=== PATIENT | male | born 1960 | race Caucasian/White ===

== ENCOUNTER 2024-09-14 14:48 | Outpatient (AMB) | payer OTHER, SELFPAY ==
--- NOTE | 2024-09-14 15:12 | MHC.OFFVIS ---
Vital Signs 09/14/24 15:13 Height 5 ft 7 in Weight 160 lb BMI 25.1 BP 137/78 Blood Pressure Location Lt brachial Position Sitting Respiration 18 Pulse 71 Pulse Source Pulse Oximeter Pulse Oximetry (%) 98 Oxygen Delivery Method Room Air Intake Visit Reasons: Failed Back Syndrome Glass Edger Required: No Allergies hydrochlorothiazide Allergy (Unknown, Verified 09/14/24 15:14) Unknown HPI Comments Details: Jake is very pleasant 64 years old gentleman who presents in my office with complains on pain in bilateral feet. He is referred to this office by electronic semiconductor processor Dr. Gonzales. He was evaluated in Dr. Guzmán's office and found to have pain in bilateral balls of his feet with pain 10/10 and inability to stand and walk sometimes. He had an MRI of the for foot which demonstrated unusual appearance of 1st plantar plate with the adjacent soft tissue edema on both sides very minimal 1st MTPJ degeneration. He reports that because of his pain he can not sleep normally he may be able from time to time to do activities of daily living, he is able to take care of himself but he can not function normally. Take he reports that movements and motions aggravate his pain. He reports severe pain at night. In terms of tissue damage he describes his pain as pulsing, pounding, jumping, shooting, stabbing, lancinating, sharp, lacerating tingling and stinging sensation. He went for EMG by Dr. Rousseau and Lorena. He reports that EMG demonstrated bilateral polyneuropathy of both feet. He denies diabetes. He denies toxic exposure. He denied heavy metal exposure. He tried multiple ways to treat his pain including homeopathic and herbal creams which did not help his pain he tried 10s unit application to his feet which helped his pain minimally to moderately. He received steroid injections into his feet by the office of Dr. Gonzales. He denies any help he reports exacerbation of the pain. His past medical history significant for hypertension, heart murmur, history of hepatitis-C which he was treated with interferon. He reports that now he is not carrying a viral load. Past surgical history significant for appendectomy tonsillectomy meniscal tear of the knee right wrist and hand surgery elbow surgery and history of L4-5 surgery in 2020. At this time he denies connection of his pain in the feet to the lower back. He denies back pain. Social history he is retired individual. He denies smoking cigarettes reports 3-4 beers on the weekend denies drinking coffee or caffeinated beverages and he denies recreational drugs. Review of Systems Const All systems reviewed & are unremarkable except as noted in HPI and below ENT Reports Normal hearing present Neuro Reports Normal hearing present, Denies Abnormal speech present, Denies confusion and Denies Sensory deficit (Neuro) Psych Denies confusion Physical Exam Vital Signs: Last Vital Signs Pulse 71 09/14/24 15:13 Resp 18 09/14/24 15:13 BP 137/78 09/14/24 15:13 Pulse Ox 98 09/14/24 15:13 Oxygen Delivery Method Room Air 09/14/24 15:13 BMI result Body Mass Index 25.1 Const General: no acute distress; No confusion Nutritional Appearance: obese morbidly obese Orientation/consciousness: patient oriented x3 and No confusion Eyes General: appearance normal, both eyes and all related structures Pupils: Equal, round and reactive pupils present EOM: EOMs intact bilaterally Neck Neck: Yes full ROM Chest Chest palpation & inspection: normal inspection of the chest Resp Effort & Inspection: normal respiratory effort, able to speak in complete sentences, normal respiratory pattern, no audible wheezes and no cough Cardio Jugular venous distension: no JVD GI Inspection: Yes normal to inspection Neuro General: patient oriented x3, gait normal and No confusion Cranial nerves: Yes CN's II-XII intact bilaterally, Yes Equal, round and reactive pupils present, Yes Normal hearing present and Yes Ability to bilaterally elevate shoulders present Speech: No Abnormal speech present Gait exam (Neuro): Normal gait present Motor exam (neuro): 5/5 motor strength present throughout Sensory Exam: No Sensory deficit (Neuro) Extrem Other: On the inspection slightly edematous anterior bilateral feet with tenderness on palpation in the bilateral both of the feet. Minimal redness at the balls of the feet. Decreased sensation of vibration at all proximal phalanges and metatarsal bones. General: Yes pedal edema Psych Speech and movement: Normal speech and movement present Affect: normal affect Attitude: cooperative Thought process: Normal thought process present Thought content: Normal thought content present Insight: Good insight present (Psych) Judgement: Good judgement present (Psych) Assessment & Plan Assessment & Plan (1) Chronic pain syndrome: Code(s): G89.4 - Chronic pain syndrome Category: Medical (2) Idiopathic polyneuropathy: Code(s): G60.9 - Hereditary and idiopathic neuropathy, unspecified Category: Medical Plan I contacted office of Dr. Rousseau and Dr. Carrillo and requested them to provide for us the results of the EMG which were performed for this patient in 2022 as well as last note of neurologist. The patient is suffering from peripheral idiopathic polyneuropathy. I offered this patient to consider spinal cord stimulation. I gave him [facility] brochure to read if he agrees and decides to go for this procedure he needs to go for psychological evaluation. He was given the telephone number of [facility] and he has a computer at home to complete the evaluation prior to procedure. I will see this patient in 2 weeks and we will discuss the trial further as well as implantation of the device if he likes the results of the trial. Patient Instructions: I here by testify that I spent 50 minutes in conversation with this patient as well as discussing this patient with office of the colleagues as well as planning his care and organizing this note. Coding Level of Care Code New Pt Level 4 (47380) Diagnoses Chronic pain syndrome G89.4 Idiopathic polyneuropathy G60.9
[2024-09-14 15:13] VITALS: BP 137/78; PULSE 71; RESP 18; O2SAT 98; BMI 25.1
--- OUTSIDE RECORDS SUMMARY | 2024-09-14 15:23 | XMS_ITS | Clinical Summary ---
Author Organization [facility] [address] [place] [address] [place] [phone] Phone Care Team Providers Care Technical Designer Name Role Phone Rito Cronin MD Primary Care Provider Allergies Active Allergy Reactions Criticality Noted Date Comments Hydrochlorothiazide 05/06/2010 Intolerant to dry mouth and polyuria Medications multivitamin (Multiple Vitamins) tablet Take 1 Tab by mouth daily. Active aspirin 81 mg EC tablet Take 1 Tab by mouth daily. 04/11/19 15 Active cholecalcifero l (VITAMIN D-3) 50 mcg (2,000 unit) tablet TAKE 1 TABLET BY MOUTH EVERY DAY 07/24/19 24 Active oxyCODONE (OxyCONTIN) 30 mg 12 hr abuse-deterren t tablet TAKE 1 TABLET BY MOUTH TWICE A DAY 12/13/19 17 Active valACYclovir (VALTREX) 1 gram tablet Take 2 Tablets by mouth 2 times daily. For 1 day for outbreaks. 06/11/19 24 Active traZODone (DESYREL) 50 mg tablet TAKE 1 TABLET BY MOUTH EVERY DAY AT BEDTIME NEEDED FOR SLEEP 90 tablet 1 04/22/19 25 Active metoprolol succinate (TOPROL-XL) 25 mg 24 hr tablet Take 1 tablet (25 mg total) by mouth 1 (one) time each day. Do not crush or chew. 90 tablet 1 05/17/19 25 Active omeprazole (PriLOSEC) [address] capsule Take 1 capsule (20 mg total) by mouth 1 (one) time each day. Do not crush or chew. 90 capsule 1 08/18/19 25 Active atorvastatin (LIPITOR) 20 mg tablet Take 1 tablet (20 mg total) by mouth 1 (one) time each day. 90 each 1 08/18/19 25 Active fenofibrate (LOFIBRA) 54 mg tablet Take 1 tablet (54 mg total) by mouth 1 (one) time each day. 90 each 1 08/18/19 25 Active fenofibrate (TRICOR) 145 mg tablet Take 1 tablet (145 mg total) by mouth 1 (one) time each day. 90 tablet 1 02/01/20 24 025 Discontinued ferrous sulfate 325 mg (65 mg elemental iron) tablet Take 1 tablet (325 mg total) by mouth 1 (one) time each day. 90 tablet 1 02/01/20 025 Discontinued(Th erapy completed) atorvastatin (LIPITOR) 40 mg tablet TAKE 1 TABLET BY MOUTH EVERYDAY AT BEDTIME 90 tablet 1 04/22/19 025 Discontinued omeprazole (PriLOSEC) [address] capsule Take 1 capsule (20 mg total) by mouth 1 (one) time each day. Do not crush or chew. 30 capsule 1 08/17/19 025 Discontinued(Re order) Active Problems Problem Noted Date Diagnosed Date CKD (chronic kidney disease) stage 2, GFR 60-89 ml/min 08/17/2024 Mixed hyperlipidemia 08/17/2024 Chronic bilateral low back pain without sciatica 08/17/2024 Peripheral neuritis 09/20/2022 Fluctuating blood pressure 03/29/2020 COVID-19 03/13/2020 Pure hypercholesterolemia 12/24/2016 GERD (gastroesophageal reflux disease) 4 Depression with anxiety 03/29/2013 Insomnia 03/04/2013 Allergic rhinitis 12/16/2007 Disorder of bone and cartilage 10/15/2005 Overview (01/19/2024): IMO update Hepatitis 10/15/2005 Overview (01/19/2024): 12/20/10 started Tx w/ Peg-Intron Redipen 120/0.5, Inject 0.5ml sc weekly, Ribavirin 200 mg tabs 3 tabs BID w/ Breakfast & Supper. & Telaprevir 375 mg tabs 2 tabs TID w/ 20 grams of fat 8 hours apart. 12/25/11 SVR Achieved. Tx stopped @ 24 weeks (rapid responder). Repeat viral load qual & quant in Dec 2011 was negative indicating SVR and suggesting a cure . IMO update Hypertension 10/15/2005 Encounters Date Type Department Care Team Description 08/17/2024 11:00 AM EDT Office Visit [facility] Medicine [address] [phone] Rito Cronin MD Primary hypertension (Primary Dx); Mixed hyperlipidemia; Gastroesophageal reflux disease without esophagitis; CKD (chronic kidney disease) stage 2, GFR 60-89 ml/min; Insomnia, unspecified type; Chronic bilateral low back pain without sciatica; Chronic anemia 08/17/2024 9:30 AM EDT Office Visit [facility] Hematology Oncology [address] [place] [phone] Samuel Vargas MD Normocytic anemia (Primary Dx) 07/11/2024 1:00 PM EDT Office Visit [facility] Hematology Oncology [address] [place] [phone] Samuel Vargas MD Anemia, unspecified type from Last 3 Months Immunizations Name Administration Dates Next Due Hepatitis A-Hepatitis B Adult (Twinrix) 18yo and older 10/31/2010,07/24/2010 Influenza Quadravalent, MDCK , 0.5ml, preservative free (Flucelvax) 6mo and older 12/09/2021 Influenza trivalent, 0.5mL, preservative free (Fluarix; FluLaval; Fluzone) ages 6mo and older (Afluria) 3 years and older 04/11/2014,11/24/2012 Influenza, Unspecified 12/04/2022 PPD Test 01/06/2012 Td Tetanus diptheria (Tdvax) 7yo and older 01/03 Tdap Tetanus diptheria acell ular pertussis (Boostrix; Adacel) 7yo and older 03/19/2022,01/06/2012 Surgical History Surgery Date Site/Laterality Comments APPENDECTOMY PROCEDURE: ME APPENDECTOMY TONSILLECTOMY PROCEDURE: HISTORICAL TONSILLECTOMY; COMMENT: T&A KNEE ARTHROSCOPY W/ MENISCAL REPAIR PROCEDURE: ME ARTHROSCOPY KNEE W/MENISCUS RPR MEDIAL/LATERAL OTHER SURGICAL HISTORY PROCEDURE: ME EXC NEUROMA HAND/FOOT EA NRV XCP SM DGT; COMMENT: L foot OTHER SURGICAL HISTORY PROCEDURE: ME ARTHROSCOPY ELBOW SURGICAL DEBRIDEMENT LIMITED; COMMENT: R AND L TENDONITIS OTHER SURGICAL HISTORY PROCEDURE: ME ARTHROSCOPY WRIST DIAG W/WO SYNOVIAL BIOPSY SPX; COMMENT: 5 or 6 SURGERIES COLONOSCOPY 03/11/10 PROCEDURE: HISTORICAL COLONOSCOPY; COMMENT: normal; repeat in ten years HERNIA REPAIR 10/28/2017 PROCEDURE: HISTORICAL HERNIA REPAIR/UMB; COMMENT: Angie Wells HERNIA REPAIR 10/28/2017 PROCEDURE: REPAIR UMBILICAL HERNIA; COMMENT: Dr. Wells Medical History Medical History Date Comments Disorder of bone and cartila ge, unspecified 10/15/2005 DX:Disorder of bone and cart ilage, unspecified Allergic rhinitis 12/16/2007 DX:Allergic rh initis Essential hypertension, benign 10/15/2005 D X:Essential hypertension, benign Hepatitis, unspecified 10/15/2005 DX:Hepati tis, unspecified; COMMENT: 12/20/10 started triple therapy. Completed 24 weeks of treatment. Repeat testing 12/25/11 confirmed SVR and a cure . GERD (gastroesophageal reflu x disease) 11/21/2013 DX:GERD (gastroesophageal re flux disease) Umbilical hernia without obs truction and without gangrene 07/09/2015 DX:Umbilical hernia without obstruction and without gangrene IFG (impaired fasting glucose) 06/03/2017 D X:IFG (impaired fasting glucose) Family History Medical History Relation Name Comments Hypertension Father Other: Dementia Mother Relation Name Status Comments Father Alive htn, chol in 70 s; cardiac stent - CAD Maternal Grandfather uk - al cohol Maternal Grandmother pneumon ia Mother Alive dementia-MINI C [place] Paternal Grandfather Paternal Grandmother [place] Sister Alive 2 sisters; 1 sc leroderma and fibromyalgia, 1 healthy Son Alive 1 son, healthy Social History Tobacco Use Types Packs/Day Years Used Date Smoking Tobacco: Former Cigarettes Q uit: 03/09/1991 Smokeless Tobacco: Former Tobacco Cessation:Counseling Given: Not Answered Alcohol Use Standard Drinks/Week Comments Yes 0 (1 standard drink = 0.6 oz pur e alcohol) Housing Instability Answer Date Recorde d Are you worried that in the next 2 months you may not have stable housing? No 05/15/2024 Food Access & Nutrition Answer Date Rec orded Do you have access to a vari ety of food including fruits and vegetables? Yes 05/15/2024 Access to Healthcare Answer Date Record ed Within the last 3 months, ho w many times did you visit the emergency department for your medical care? 0 05/15/2024 Health Literacy Answer Date Recorded How often do you need to hav e someone help you when you read instructions, pamphlets, or other written material from your doctor or pharmacy? Never 05/15/2024 Caregiver: How often do you need to have someone help you when you read instructions, pamphlets, or other written material from your doctor or pharmacy? Not on file 05/15/2024 Financial Risk Answer Date Recorded How hard is it for you to pa y for the very basics like food, housing, medical care, and air conditioning / heating? Not very hard 05/15/2024 Transportation Answer Date Recorded Has the lack of transportati on kept you from meetings, work, or from getting things needed for daily living? No Has the lack of transportati on kept you from medical appointments or from getting medications? No 05/15/2024 Social Isolation Answer Date Recorded How often do you feel lonely or isolated from th ose around you? Never 05/15/2024 Food Risk Answer Date Recorded Within the past 12 months we worried whether our food would run out before we got money to buy more. Never true 05/15/2024 Within the past 12 months th e food we bought just didn't last and we didn't have money to get more. Never true 05/15/2024 Dependent Care Answer Date Recorded Do you need help finding or paying for care for your loved ones. For example, school child care attendant or elderly care for an older adult? No 05/15/2024 Education Answer Date Recorded Do you think completing more education or training, like finishing a GED, going to college, or learning a trade, would be helpful for you? N/A 05/15/2024 Employment and Income Answer Date Recor ded During the last four weeks, have you been actively looking for work? No 05/15/2024 Living Situation Answer Date Recorded What is your living situation? 0 05/15/2024 Sex and Gender Information Value Date Recorded Sex Assigned at Male 07/12/2024 12:13 PM EDT Legal Sex Male 11:39 PM EST Gender Identity Male 07/12/2024 12:13 PM EDT Sexual Orientation Straight 07/12/2024 12 :13 PM EDT Obstetrics History Last Filed Vital Signs Vital Sign Reading Time Taken Comments Blood Pressure 120/78 08/17/2024 10:44 AM EDT provider will recheck Pulse 84 08/17/2024 10:44 AM EDT Temperature 36.3 C (97.3 F) 08/17/2024 9:21 AM EDT Respiratory Rate 16 08/17/2024 10:4 4 AM EDT Oxygen Saturation 100% 08/17/2024 9:2 1 AM EDT Inhaled Oxygen Concentration - - Weight 73 kg (161 lb) 08/17/2024 10:44 AM EDT Height 170.2 cm (5' 7 ) 08/17/2024 10:4 4 AM EDT Body Mass Index 25.22 08/17/2024 10:44 AM EDT Plan of Treatment Upcoming Encounters Date Type Department Care Team (Late st Contact Info) Description 01/17/2025 11:00 AM EST Office Visit Adult Medicine [address] [phone] Rito Cronin MD [address] [place] [phone] Health Maintenance Due Date Last Done Comments Pneumococcal Vaccine: 50+ Years (1 of 2 - PCV) 1978 Hepatitis B Vaccines (3 of 3 - Hep B Twinrix 3-dose series) 04/02/2011 10/31/2010, 07/24/2010 COVID-19 Vaccine (2 - Pfizer risk series) 06/28/2021 06/07/2021 Abdominal Aortic Aneurysm (AAA) Screen 02/01/2022 Falls Risk Assessment 01/27/2024 Influenza Vaccine (#1) 2024 , 12/09/2021, 04/11/2014, Additional history exists Social Influencers of Health Screening 05/15/2025 05/15/2024 Hypertension/CHF/CAD Annual BMP Blood Test 07/11/2025 07/11/2024, 05/12/2024, 03/25/2024, Additional history exists Colorectal Cancer Screening: Colonoscopy 07/30/2026 07/30/2021 Cholesterol Screening (Lipid Panel) 03/17/2029 03/17/2024, 01/22/2023 DTaP,Tdap,and Td Vaccines (4 - Td or Tdap) 03/19/2032 03/19/2022, 01/06/2012, 01/03/2003 RSV Immunization Adult Patients (1 - 1-dose 75+ series) 2034 Hepatitis A Vaccines Aged Out 10/31/2010, 07/25/19 11 No longer eligible based on patient's age to complete this topic Hepatitis C Screening Completed 08/04/2015 Zoster Vaccines Completed 12/05/2022, 07/29/2022 Depression Screening Completed 05/15/2024 HIB Vaccines Aged Out No longer eligi ble based on patient's age to complete this topic HPV Vaccines Aged Out No longer eligi ble based on patient's age to complete this topic IPV Vaccines Aged Out No longer eligi ble based on patient's age to complete this topic MMR Vaccines Aged Out No longer eligi ble based on patient's age to complete this topic Meningococcal ACWY Vaccine Aged Out N o longer eligible based on patient's age to complete this topic Meningococcal B Vaccine Aged Out No l onger eligible based on patient's age to complete this topic RSV Immunization Patients Under 20 months Aged Out No longer eligible based on patient's age to complete this topic Varicella Vaccines Aged Out No longer eligible based on patient's age to complete this topic Procedures Procedure Name Priority Date/Time Associated Diagnosis Comments CBC WITH AUTO DIFFERENTIAL Routine 07/11/2024 1:27 PM EDT Anemia, unspecified type COMPREHENSIVE METABOLIC PANEL Routine 07/11/2024 1:27 PM EDT Anemia, unspecified type ERYTHROPOIETIN Routine 07/11/2024 1:27 PM EDT Anemia, unspecified type RETICULOCYTE COUNT Routine 07/11/2024 1: 27 PM EDT Anemia, unspecified type IRON AND TIBC Routine 07/11/2024 1:27 PM EDT Anemia, unspecified type FERRITIN Routine 07/11/2024 1:27 PM EDT Anemia, unspecified type VITAMIN B12 AND FOLATE Routine 1:27 PM EDT Anemia, unspecified type CBC AND DIFFERENTIAL Routine 07/11/2024 1:27 PM EDT Anemia, unspecified type LIPID PANEL WITH REFLEX TO DIRECT LDL Routine 03/17/2024 9:37 AM EST Adult general medical examination Gastroesophageal reflux disease without esophagitis Pure hypercholesterolemia Peripheral neuritis Primary hypertension COLONOSCOPY Routine 07/30/2021 HEPATITIS C SCREENING Routine 08/04/2015 from Last 3 Months or Most Recently Relevant to Health Maintenance Results * (ABNORMAL) Vitamin B12 and folate (07/11/2024 1:27 PM EDT) Vitamin B-12 653 250 - 900 pcg/mL LAB CHEMISTRY METHOD 07/11/2024 6:25 PM EDT [facility] Folate >20.0(H) 2.8 - 17.0 ng/ml LAB CHEMISTRY METHOD 07/11/2024 6:25 PM EDT [facility] Blood Venous blood specimen / Unknown Venipuncture / Unknown 07/11/2024 1:27 PM EDT 07/11/2024 4:38 PM EDT us Samuel Vargas MD LAB BLOOD ORDERABLES Final R esult [facility] [address] [place] [address], [place] [phone] * (ABNORMAL) CBC auto differential (07/11/2024 1:27 PM EDT) [facility] WBC 7.0 4.8 - 10.8 K/mcL LAB HEMETOLOGY METHOD 07/11/2024 4:49 PM EDT [facility] RBC 4.70 4.50 - 5.50 M/mcL LAB HEMETOLOGY METHOD [facility]/11[facility]2024 [facility] Hemoglobin 14.0 13.5 - 17.5 g/dL LAB HEMETOLOGY METHOD 07/11/2024 4:49 PM EDT [facility] Hematocrit 43.9 42.0 - 54.0 % LAB HEMETOLOGY METHOD 07/11/2024 4:49 PM [facility] MCV 92.8 79.0 - 98.0 FL LAB HEMETOLOGY METHOD 07/11/2024 4:49 PM [facility] MCH 29.6 27.0 - 32.0 pcg LAB HEMETOLOGY METHOD 07/11/2024 4:49 [facility] MCHC 31.9(L) 32.0 - 37.0 g/dL LAB HEMETOLOGY METHOD 07/11/2024 4:49 PM [facility] RDW 12.0 11.0 - 15.0 % LAB HEMETOLOGY METHOD 07/11/2024 4:49 PM [facility] Platelets 259 130 - 400 K/mcL LAB HEMETOLOGY METHOD 07/11/2024 4:49 PM EDT [facility] MPV 10.1 7.0 - 11.0 FL LAB HEMETOLOGY METHOD 07/11/2024 4:49 [facility] NRBC 0.0 <1.0 % LAB HEMETOLOGY METHOD 07/11/2024 4:49 PM [facility] NRBC Absolute 0.00 <0.10 K/mcL LAB HEMETOLOGY METHOD 07/11/2024 4:49 PM EDT [facility] Neutrophils Relative 64.4 % LAB HEMETOLOGY METHOD 07/11/2024 4:49 PM [facility] Lymphocytes Relative 22.6 % LAB HEMETOLOGY METHOD 07/11/2024 4:49 PM [facility] Monocytes Relative 10.6 % LAB HEMETOLOGY METHOD 07/11/2024 4:49 PM [facility] Eosinophils Relative 1.6 % LAB HEMETOLOGY METHOD 07/11/2024 4:49 PM [facility] Basophils Relative 0.4 % LAB HEMETOLOGY METHOD 07/11/2024 4:49 PM [facility] Immature Granulocytes Relative 0.4 % LAB HEMETOLOGY METHOD 07/11/2024 4:49 PM [facility] Neutrophils Absolute 4.47 1.50 - 7.00 K/mcL LAB HEMETOLOGY METHOD 07/11/2024 4:49 PM [facility] Lymphocytes Absolute 1.57 1.00 - 5.00 K/mcL LAB HEMETOLOGY METHOD 07/11/2024 4:49 PM [facility] Monocytes Absolute 0.74 0.20 - 1.00 K/mcL LAB HEMETOLOGY METHOD 07/11/2024 4:49 PM [facility] Eosinophils Absolute 0.11 0.00 - 0.50 K/mcL LAB HEMETOLOGY METHOD 07/11/2024 4:49 PM [facility] Basophils Absolute 0.03 0.00 - 0.20 K/mcL LAB HEMETOLOGY METHOD 07/11/2024 4:49 PM [facility] Immature Granulocytes Absolute 0.03 0.00 - 0.03 K/mcL LAB HEMETOLOGY METHOD 07/11/2024 4:49 PM [facility] Blood Venous blood specimen / Unknown Venipuncture / Unknown 07/11/2024 1:27 PM EDT 07/11/2024 4:39 PM EDT Samuel Vargas MD LAB BLOOD ORDERABLES Final R esult [facility] [address] [place] [address], [place] [phone] * Erythropoietin (07/11/2024 1:27 PM EDT) Erythropoietin 3.8 2.6 - 18.5 mIU/mL 07/14/2024 3:52 PM EDT [facility] Comment: Test performed at [facility], [address], [place] [address] Niurka Flores MD, PhD - Econometrician Blood Venous blood specimen / Unknown Venipuncture / Unknown 07/11/2024 1:27 PM EDT 07/11/2024 4:38 PM EDT Samuel Vargas MD LAB BLOOD ORDERABLES Final R esult [facility] [address] [place] [address] * Iron and TIBC (07/11/2024 1:27 PM EDT) Iron 106 50 - 160 mcg/dL LAB CHEMISTRY METHOD 07/11/2024 6:03 PM EDT [facility] TIBC 443 250 - 450 mcg/dL LAB CHEMISTRY METHOD 07/11/2024 6:03 PM EDT [facility] Iron Saturation 24 20 - 50 % LAB CHEMISTRY METHOD 07/11/2024 6:03 PM EDT [facility] Blood Venous blood specimen / Unknown Venipuncture / Unknown 07/11/2024 1:27 PM EDT 07/11/2024 4:38 PM EDT Samuel Vargas MD LAB BLOOD ORDERABLES Final R esult Performing Organization Address City/[facility]/ZIP Co de Phone Number [facility] [address] [place] [address], [place] [phone] * Reticulocyte count (07/11/2024 1:27 PM EDT) Retic Ct Abs 0.050 0.030 - 0.090 M/mcL LAB HEMETOLOGY METHOD 07/11/2024 4:49 PM EDT [facility] Retic Ct Pct 1.1 0.7 - 1.7 % LAB HEMETOLOGY METHOD 07/11/2024 4:49 PM EDT [facility] Immature Retic Fract 5.8 2.3 - 15.9 % LAB HEMETOLOGY METHOD 07/11/2024 4:49 PM EDT [facility] Reticulocyte Hemoglobin 32.8 >29.0 pcg LAB HEMETOLOGY METHOD 07/11/2024 4:49 PM EDT [facility] Blood Venous blood specimen / Unknown Venipuncture / Unknown 07/11/2024 1:27 PM EDT 07/11/2024 4:39 PM EDT Samuel Vargas MD LAB BLOOD ORDERABLES Final R esult [facility] [address] [place] [address], [place] [phone] * Ferritin (07/11/2024 1:27 PM EDT) Ferritin 332 26 - 388 ng/mL LAB CHEMISTRY METHOD 07/11/2024 6:03 PM EDT [facility] Blood Venous blood specimen / Unknown Venipuncture / Unknown 07/11/2024 1:27 PM EDT 07/11/2024 4:38 PM EDT us Samuel Vargas MD LAB BLOOD ORDERABLES Final R esult [facility] [address] [place] [address], * (ABNORMAL) Comprehensive metabolic panel (07/11/2024 1:27 PM EDT) Sodium 137 133 - 145 mmol/L LAB CHEMISTRY METHOD 07/11/2024 6:25 PM EDT [facility] Potassium 4.6 3.5 - 5.5 mmol/L LAB CHEMISTRY METHOD 07/11/2024 6:25 PM [facility] Chloride 103 96 - 110 mmol/L LAB CHEMISTRY METHOD 07/11/2024 6:25 PM [facility] CO2 30 21 - 32 mmol/L LAB CHEMISTRY METHOD 07/11/2024 6:25 PM [facility] Anion Gap 4 3 - 11 LAB CHEMISTRY METHOD 07/11/2024 6:25 PM [facility] Glucose 106(H) 70 - 100 mg/dL LAB CHEMISTRY METHOD 07/11/2024 6:25 PM [facility] BUN 16 5 - 25 mg/dL LAB CHEMISTRY METHOD 07/11/2024 6:25 PM [facility] Creatinine 1.21 0.70 - 1.30 mg/dL LAB CHEMISTRY METHOD 07/11/2024 6:25 PM [facility] eGFR 66 >=60 mL/min/1. 73m2 LAB CHEMISTRY METHOD 07/11/2024 6:25 PM [facility] Comment:Calculation based on the Chronic Kidney Disease Epidemiology Collaboration (CKD-EPI) equation refit without adjustment for race. BUN/Creatinine Ratio 13.2 LAB CHEMISTRY METHOD 07/11/2024 6:25 PM [facility] Calcium 9.6 8.5 - 10.5 mg/dL LAB CHEMISTRY METHOD 07/11/2024 6:25 PM EDT [facility] AST (SGOT) 26 10 - 42 unit/L LAB CHEMISTRY METHOD 07/11/2024 6:25 PM [facility] ALT (SGPT) 32 10 - 60 unit/L LAB CHEMISTRY METHOD 07/11/2024 6:25 PM EDT [facility] Alkaline Phosphatase 77 42 - 121 unit/L LAB CHEMISTRY METHOD 07/11/2024 6:25 PM EDT [facility] Total Protein 7.4 6.0 - 8.0 g/dL LAB CHEMISTRY METHOD 07/11/2024 6:25 PM [facility] Albumin 4.2 3.2 - 5.0 g/dL LAB CHEMISTRY METHOD 07/11/2024 6:25 PM [facility] Total Bilirubin 0.4 0.0 - 1.4 mg/dL LAB CHEMISTRY METHOD 07/11/2024 6:25 PM EDT [facility] Blood Venous blood specimen / Unknown Venipuncture / Unknown 07/11/2024 1:27 PM EDT 07/11/2024 4:38 PM EDT us Samuel Vargas MD LAB BLOOD ORDERABLES Final R esult [facility] [address] [place] [address], * Lipid panel with reflex to direct LDL (03/17/2024 9:37 AM EST) Cholesterol 137 0 - 200 mg/dL LAB CHEMISTRY METHOD 03/17/2024 12:24 PM EST [facility] Triglycerides 99 0 - 150 mg/dL LAB CHEMISTRY METHOD 03/17/2024 12:24 PM EST [facility] HDL 49 >=40 mg/dL LAB CHEMISTRY METHOD 03/17/2024 12:24 PM EST [facility] LDL Calculated 68 0 - 100 mg/dL LAB CHEMISTRY METHOD 03/17/2024 12:24 PM EST [facility] VLDL Cholesterol Addy 19.8 mg/dL LAB CHEMISTRY METHOD 03/17/2024 12:24 PM EST [facility] Non HDL Chol. (LDL+VLDL) 88 <145 mg/dL LAB CHEMISTRY METHOD 03/17/2024 12:24 PM EST [facility] Chol/HDL Ratio 2.8 0.0 - 4.4 LAB CHEMISTRY METHOD 03/17/2024 12:24 PM [facility] Blood Venous blood specimen / Unknown Venipuncture / Unknown 03/17/2024 9:37 AM EST 03/17/2024 9:37 AM EST Ebonie ACEVEDO LAB BLOOD ORDERABLES Fin al Result [facility] [address] [place] [address], * Colonoscopy (07/30/2021) [facility] Colonoscopy No Interpretation , Abstracted Anatomical Region Laterality Modality Other Historical Provider HEALTH MAINTENANCE Final Result * Hepatitis C Screening (08/04/2015) [facility] Hepatitis C Screening Abstracted Historical Provider HEALTH MAINTENANCE Final Result from Last 3 Months or Most Recently Relevant to Health Maintenance Insurance [employer] Advance Directives Documents on File Type Date Recorded 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
--- OUTSIDE RECORDS SUMMARY | 2024-09-14 15:23 | XMS_ITS ---
Author Name [facility] Organization Unknown History of Medication Use Medication Directions Dispensed Refills Start Date End Date Stat lidocaine (LIDODERM) 5 % patch Leave on for 12 hours then remove 08/25/2024 active lidocaine (LIDODERM) 5 % patch Place 1 patch on the skin daily. Apply patch and leave on for 12 hours then remove. Patch may remain on skin for 12 hours per day. 04/08/2024 active cyclobenzaprine (FLEXERIL) 10 MG tablet TAKE 1 TABLET BY MOUTH THREE TIMES A DAY NEEDED 06/13/2022 08/07/2023 active HYDROmorphone (DILAUDID) 4 MG tablet Take 1-1.5 tablets (4-6 mg total) by mouth 4 times daily (every 6 hours) as needed for severe pain. Max Daily Amount: 24 mg 06/13/2022 08/14/2022 active acetaminophen (TYLENOL) 325 MG tablet Take 3 tablets (975 mg total) by mouth every 6 (six) hours. 06/13/2022 07/14/2022 active calcium carbonate (TUMS) 500 MG chewable tablet Chew 2 tablets (1,000 mg total) 2 times daily (every 12 hours) as needed for indigestion or heartburn. 06/13/2022 07/14/2022 active aspirin enteric coated (ECOTRIN LOW STRENGTH) 81 MG EC tablet Take 1 tablet (81 mg total) by mouth 2 (two) times a day. 06/13/2022 active gabapentin (NEURONTIN) 300 MG capsule Take 1 capsule (300 mg total) by mouth 3 (three) times a day. 03/27/2022 active cholecalciferol (CHOLECALCIFEROL) 25 MCG (1000 UT) tablet Take 1 tablet (1,000 Units total) by mouth every morning. 03/20/2022 active atorvastatin (LIPITOR) 20 MG tablet Take 1 tablet (20 mg total) by mouth every morning. 03/11/2022 active losartan (COZAAR) 100 MG tablet Take 1 tablet (100 mg total) by mouth every morning. 03/10/2022 active metoPROLOL SUCCINATE (TOPROL-XL) 50 MG 24 hr tablet Take 1 tablet (50 mg total) by mouth every morning. 03/10/2022 active HYDROcodone-acetaminop hen (NORCO) 5-325 mg per tablet Take 1 tablet by mouth 2 (two) times a day as needed. Max Daily Amount: 2 tablets 03/07/2022 active amLODIPine (NORVASC) 5 MG tablet Take 1 tablet (5 mg total) by mouth every morning. 02/23/2022 active Allergies Allergen Reaction Severity Comment Documented Date Source Status LISINOPRIL COUGH 04/09/2022 [facility] active HYDROCHLOROTHIAZIDE UNKNOWN/PAT IENT AND FAMILY UNABLE TO DEFINE Intolerant to dry mouth and polyuria 05/06/2010 [facility] active NO KNOWN DRUG ALLERGIES [facility] Problems Problem Status Onset Date Problem Type Date of Resolution Source Radiculopathy, lumbosacral region active [facility] Lumbar arthropathy active 2022-06-09 ProblemAct [facility] Post-laminectomy syndrome active EncounterDiagnosisAct [facility] Palmar fibromatosis active 2020-07-19 ProblemAct [facility] Carpal Tunnel Syndrome active 2014-07-13 ProblemAct [facility] Trigger Finger active 2014-07-13 ProblemAct [facility] Encounters Encounter Type Encounter Reason Primary Diagnosis Location Date Ambulatory Postlaminectomy syndrome, not elsewhere classified Postlaminectomy syndrome, not elsewhere classified [facility] 08/12/2024 Ambulatory Postlaminectomy syndrome, not elsewhere classified Postlaminectomy syndrome, not elsewhere classified [facility] 04/08/2024 Ambulatory [facility] 01/20/2024 Ambulatory Postlaminectomy syndrome, not elsewhere classified Postlaminectomy syndrome, not elsewhere classified [facility] 12/25/2023 Ambulatory [facility] 12/15/2023 Ambulatory Radiculopathy, lumbosacral region Radiculopathy, lumbosacral region [facility] 12/15/2023 Ambulatory Radiculopathy, lumbosacral region Radiculopathy, lumbosacral region [facility] 11/27/2023 Ambulatory [facility] 11/03/2023 Ambulatory Other intervertebral disc degeneration, lumbar region Other intervertebral disc degeneration, lumbar region [facility] 11/03/2023 Ambulatory Radiculopathy, lumbosacral region Radiculopathy, lumbosacral region [facility] 10/23/2023 Ambulatory Spondylosis without myelopathy or radiculopathy, lumbar region Spondylosis without myelopathy or radiculopathy, lumbar region [facility] 08/07/2023 Ambulatory [facility] 08/04/2023 Ambulatory Other intervertebral disc degeneration, lumbar region Other intervertebral disc degeneration, lumbar region [facility] 08/04/2023 Ambulatory Low back pain, unspecified Low back pain, unspecified [facility] 06/16/2023 Ambulatory Low back pain, unspecified Low back pain, unspecified [facility] 06/16/2023 [facility]23 Ambulatory Radiculopathy, lumbosacral region Radiculopathy, lumbosacral region [facility] 05/01/2023 Ambulatory Other intervertebral disc degeneration, lumbosacral region Other intervertebral disc degeneration, lumbosacral region [facility] 04/21/2023 Ambulatory Other intervertebral disc degeneration, lumbosacral region Other intervertebral disc degeneration, lumbosacral region [facility] 04/21/2023 Ambulatory Radiculopathy, lumbosacral region Radiculopathy, lumbosacral region [facility] 03/20/2023 Ambulatory Other intervertebral disc degeneration, lumbosacral region Other intervertebral disc degeneration, lumbosacral region [facility] 02/17/2023 Ambulatory Other intervertebral disc degeneration, lumbosacral region Other intervertebral disc degeneration, lumbosacral region [facility] 02/17/2023 Ambulatory Radiculopathy, lumbosacral region Radiculopathy, lumbosacral region [facility] 02/06/2023 Ambulatory Radiculopathy, lumbosacral region Radiculopathy, lumbosacral region [facility] 01/09/2023 Ambulatory Other intervertebral disc degeneration, lumbar region Other intervertebral disc degeneration, lumbar region [facility] 12/16/2022 Ambulatory Other intervertebral disc degeneration, lumbar region Other intervertebral disc degeneration, lumbar region [facility] 12/16/2022 Ambulatory Radiculopathy, lumbosacral region Radiculopathy, lumbosacral region [facility] 11/28/2022 Ambulatory Spinal stenosis, lumbar region with neurogenic claudication Spinal stenosis, lumbar region with neurogenic claudication [facility] 10/30/2022 Ambulatory Spinal stenosis, lumbar region with neurogenic claudication Spinal stenosis, lumbar region with neurogenic claudication [facility] 10/28/2022 Ambulatory Spinal stenosis, lumbar region with neurogenic claudication Spinal stenosis, lumbar region with neurogenic claudication [facility] 10/24/2022 Ambulatory Spinal stenosis, lumbar region with neurogenic claudication Spinal stenosis, lumbar region with neurogenic claudication [facility] 10/22/2022 Ambulatory Other intervertebral disc displacement, lumbar region Other intervertebral disc displacement, lumbar region [facility] 10/20/2022 Ambulatory Other intervertebral disc displacement, lumbar region Other intervertebral disc displacement, lumbar region [facility] 10/20/2022 Ambulatory Spinal stenosis, lumbar region with neurogenic claudication Spinal stenosis, lumbar region with neurogenic claudication [facility] 10/16/2022 Ambulatory Spinal stenosis, lumbar region with neurogenic claudication Spinal stenosis, lumbar region with neurogenic claudication [facility] 09/25/2022 Ambulatory Spinal stenosis, lumbar region with neurogenic claudication Spinal stenosis, lumbar region with neurogenic claudication [facility] 09/23/2022 Ambulatory Other interverte bral disc displacement, lumbar region [facility] 09/19/2022 Ambulatory Other interverte bral disc displacement, lumbar region [facility] 09/19/2022 Ambulatory Spinal stenosis, lumbar region with neurogenic claudication Spinal stenosis, lumbar region with neurogenic claudication [facility] 09/16/2022 Ambulatory Spinal stenosis, lumbar region with neurogenic claudication Spinal stenosis, lumbar region with neurogenic claudication [facility] 09/12/2022 Ambulatory Spinal stenosis, lumbar region with neurogenic claudication Spinal stenosis, lumbar region with neurogenic claudication [facility] 09/10/2022 Ambulatory Spinal stenosis, lumbar region with neurogenic claudication Spinal stenosis, lumbar region with neurogenic claudication [facility] 08/29/2022 Ambulatory Spinal stenosis, lumbar region with neurogenic claudication [facility] 08/08/2022 Ambulatory Spinal stenosis, lumbar region with neurogenic claudication [facility] 08/08/2022 Inpatient Spondylosis with out myelopathy or radiculopathy, lumbar region [facility] 06/09/2022 Ambulatory Spinal stenosis, lumbar region with neurogenic claudication [facility] 05/14/2022 Ambulatory Unspecified thor acic, thoracolumbar and lumbosacral intervertebral disc disorder [facility] 04/09/2022 Ambulatory [facility] 11/25/2021 Ambulatory [facility] 10/30/2021 Ambulatory [facility] 10/14/2021 Care Team Organization Name Specialty Phone Email Start Date End Da te [facility] Primary Care 08/12/2024 09/10/2024 [facility] 03/15/2023 [facility] 12/18/2022 12/18/2022 [facility] Primary Care 05/14/20222024 [facility] Primary Care 05/14/20222022 [facility] Primary Care 04/09/2022 09/11/19 [facility] Primary Care 04/09/2022 05/16/19 23 [facility] 11/27/2021
--- OUTSIDE RECORDS SUMMARY | 2024-09-14 15:23 | XMS_ITS | Encounter Summary ---
Author Organization [facility] Address [address] [place] [address] Care Team Providers Care Shop Superintendent Name Role Phone Rito Cronin MD Primary Care Provider Bert Herrera MD Unavailable [phone] Encounter Details Date Type Department Care Team (Late st Contact Info) Description 05/13/2022 Telephone [facility] [place] [address] [facility] 2nd [place] [address] [place] [phone] Danyelle Daniel MA [address] [place] [address] Social History Tobacco Use Types Packs/Day Years Used Date Smoking Tobacco: Former Cigarettes Q uit: 1991 Smokeless Tobacco: Never Comments:Light smoker Alcohol Use Standard Drinks/Week Comments Yes 2 (1 standard drink = 0.6 oz pure alcohol) Advised to avoid 2 wks prior to sx AUDIT-C Answer Date Recorded Q1: How often do you have a drink containing alc ohol? 2-3 times a week 05/14/2022 Q2: How many drinks containi ng alcohol do you have on a typical day when you are drinking? 1 or 2 05/14/2022 Q3: How often do you have si x or more drinks on one occasion? Never 05/14/2022 Sex and Gender Information Value Date Recorded Sex Assigned at Male 04/07/2022 4:18 PM EST Legal Sex Male 7:07 PM EDT Gender Identity Male 04/07/2022 4:18 PM EST Sexual Orientation Heterosexual (straight) 06/09 5:53 AM EDT COVID-19 Exposure Response Date Recorded In the last 10 days, have yo u been in contact with someone who was confirmed or suspected to have Coronavirus/COVID-19? No / Unsure 05/14/2022 11:13 AM EDT documented as of this encounter Functional Status * Audit-C Score Answer Date of Assessment Author 3 05/14/2022 12:28 PM EDT Jenna Jeter i, APRN * Question Answer Date of Assessment Author Q1: How often do you have a drink containing alcohol? 2-3 times a week 05/14/2022 12:28 PM EDT Ashlie Jessica sa, APRN Q2: How many drinks containing alcohol do you have on a typical day when you are drinking? 1 or 2 05/14/2022 12:28 PM EDT Ashlie Jessica sa, APRN Q3: How often do you have six or more drinks on one occasion? Never 05/14/2022 12:28 PM EDT Ashlie Jessica sa, APRN documented as of this encounter Miscellaneous Notes * Telephone Encounter - Danyelle SerratoRAYNA thompson - 05/13/2022 3:34 PM EDT COVID screen: 1) Current temperature: Temp Readings from Last 1 Encounters: 11/14/13 97.6 ??F (36.4 ??C) - Temperature >100.0 F: No In the past two weeks, have you experienced (two of the following): 2) Cough: No 3) Difficulty breathing: No 4) Shortness of breath: No 5) N/V: No 6) Diarrhea: No 7) Abdominal pain: No 8) Loss of sense of taste: No 9) Loss of sense of smell: No 10) Body aches: No 11) Muscle pain: No 12) Sneezing: No 13) Runny nose: No 14) Sore throat: No 15) Headache: No 16)Fever: No 17)Chills: No 18)Repeated shaking with chills: No Have you recently been in close contact with a person confirmed or suspected of COVID-19? No Have you recently been in close contact with a person with flu like symptoms? No Have you recently had an admission to SNF/Rehab/Long Term? No Have you traveled internationally or domestically in the last month? No documented in this encounter Plan of Treatment Upcoming Encounters Date Type Department Care Team (Late st Contact Info) Description 10/18/2024 1:00 PM EDT [facility] [address] [phone] Bert Soto MD [address] [place] [id number] 11/04/2024 11:15 AM EDT Office Visit Orth[facility] [address] [phone] Arvind Antony MD [address] [place] [address] [address] [place] [address] documented as of this encounter Visit Diagnoses Not on filedocumented in this encounter Care Teams Shop Superintendent Relationship Specialty Start Date End Date Rito Cronin MD PCP - General Medicine Hospitalist 04/24/22 Bert Soto MD [address] [place] [id number] Surgeon Surgery, Orthopedic 05/13/22 documented as of this encounter
== END 2024-09-14 15:45 | disposition home or self-care (01) ==
LOC: HO.PMC 14:49
PROVIDERS: PCP Family Medicine; Visit Provider Anesthesiology
DX: G89.4 Chronic pain syndrome (principal); G60.9 Hereditary and idiopathic neuropathy, unspecified; M54.16 Radiculopathy, lumbar region
CPT/HCPCS: 99204